=== PATIENT | female | born 1980 | race African-American/Black ===

== ENCOUNTER 2018-10-03 09:48 | Emergency (ER) | payer OTHER ==
[~2018-10-03] VITALS: Ht 167.6 cm; Wt 108.9 kg
[2018-10-03 11:06] VITALS: BP 133/95
[2018-10-03] MEDS ORDERED: OFLO5DRO OP (12:01)
--- NOTE | 2018-10-03 12:02 | PHYS DOC ---
Past Medical History Past Medical History: No Pertinent History (MESFIN MILES APRN) Past Surgical History: No Surgical History (MESFIN MILES APRN) Alcohol Use: Occasionally Drug Use: None (MESFIN MILES APRN) Adult General Chief Complaint Chief Complaint: EYE PROBLEMS HPI HPI Patient is a 38 year old female who presents with left eye erythema and watering profusely. The patient states that she does have some photophobia with sunlight exposure. She states that she felt like something got into her eye on Wednesday. She denies matting and states that her drainage is clear with and watery. She denies changes in her vision. See the nurse's visual acuities. She does wear reading glasses but denies contact use. (MESFIN MILES APRN) Review of Systems Review of Systems Constitutional: Denies fever or chills [] Eyes: See history of present illness HENT: Denies nasal congestion or sore throat [] Respiratory: Denies cough or shortness of breath [] Cardiovascular: No additional information not addressed in HPI [] Neurologic: Denies headache, focal weakness or sensory changes [] Endocrine: Denies polyuria or polydipsia [] All other systems were reviewed and found to be within normal limits, except as documented in this note. (MESFIN MILES APRN) Current Medications Current Medications Current Medications Medications (Trade) Dose Ordered Sig/Bianca Start Time Stop Time Status Last Admin Dose Admin Fluorescein Sodium (Ful-Beverley) 1 strip 1X ONCE 10/03/18 12:15 10/03/18 12:16 DC 10/03/18 12:19 1 STRIP Tetracaine HCl (Tetracaine) 1 drop 1X ONCE 10/03/18 12:15 10/03/18 12:16 DC 10/03/18 12:19 1 DROP (LIUDMILA EVANS MD) Allergies Allergies Allergies Coded Allergies Type Severity Reaction Last Updated Verified No Known Drug Allergies 09/07/14 No (LIUDMILA EVANS MD) Physical Exam Physical Exam Constitutional: Well developed, well nourished, no acute distress, non-toxic appearance. [] HENT: Normocephalic, atraumatic, bilateral external ears normal, oropharynx moist, no oral exudates, nose normal. [] Eyes: PERRLA, EOMI, conjunctiva erythematous to left with watery discharge. [] Neck: Normal range of motion, no tenderness, supple, no stridor. [] Cardiovascular:Heart rate regular rhythm, no murmur [] Lungs & Thorax: Bilateral breath sounds clear to auscultation [] Neurologic: Alert and oriented X 3, normal motor function, normal sensory function, no focal deficits noted. [] Psychologic: Affect normal, judgement normal, mood normal. [] (MESFIN MILES APRN) Current Patient Data Vital Signs Vital Signs Date Time Temp Pulse Resp B/P (MAP) Pulse Ox O2 Delivery O2 Flow Rate FiO2 10/03/18 11:06 98.4 91 16 133/95 (108) 100 Room Air 98.4 (LIUDMILA EVANS MD) EKG EKG [] (MESFIN MILES APRN) Radiology/Procedures Radiology/Procedures []Ophthalmologic Assessment: Patient's ocular symptoms have stabilized while they have been evaluated in the department and are appropriate for outpatient work up. No evidence of ruptured globe, retinal detachment, acute angle closure glaucoma, or deep space infection. There was uptake of full glow that 7 o'clock a corneal abrasion noted (MESFIN MILES APRN) Course & Med Decision Making Course & Med Decision Making Pertinent Labs and Imaging studies reviewed. (See chart for details) [] (MESFIN MILES APRN) Course & Med Decision Making Staff Physician Addendum: I was working in the ER during the course of this patient's visit. I was available for consultation as needed, but I was not directly involved in the care of this patient. (LIUDMILA EVANS MD) Dragon Disclaimer Dragon Disclaimer This electronic medical record was generated, in whole or in part, using a voice recognition dictation system. (MESFIN MILES APRN) Departure Departure Impression: Primary Impression: Corneal abrasion Disposition: 01 HOME, SELF-CARE Condition: STABLE Referrals: EFRAIN FOREMAN MD (PCP) Patient Instructions: Eye - Corneal Abrasion Additional Instructions: As the eyedrops as directed. Follow-up with your civil engineering project designer in 2 days if not improving or sooner if worsening. Scripts Ofloxacin (OCUFLOX) 5 Ml Drops 5 ML OP QID for corneal abrasion for 7 Days, DROP Prov: MESFIN MILES APRN 10/03/18 MESFIN MILES APRN Oct 03, 2018 12:02 LIUDMILA EVANS MD October 05, 2018 00:08
[2018-10-03] MEDS ORDERED: TETRACAINE 0.5% OPHTH SOLUTION 4ML BOTTLE. OS ONE (12:15)
[2018-10-03] MEDS ORDERED: FLUORESCEIN OPHTH TEST STRIP. OS ONE (12:15)
== END 2018-10-03 13:11 | disposition home or self-care (01) ==
LOC: ER 09:48
DX: S05.02XA Injury of conjunctiva and corneal abrasion without foreign body, left eye, initial encounter (principal); X58.XXXA Exposure to other specified factors, initial encounter; Y93.89 Activity, other specified; Y92.89 Other specified places as the place of occurrence of the external cause; Y99.8 Other external cause status
CPT/HCPCS: 99283

== ENCOUNTER → 2019-08-08 | Outpatient (CLI) | payer MEDICAID ==
[~2019-08-08] MED LIST: OFLO5DRO OP
--- NOTE | 2019-08-08 17:42 | KCIC ---
Three-view cervical spine series Clinical indications: Chronic tension-type headache. Neck pain. FINDINGS: No acute fracture or discitis or lytic process or anterolisthesis or prevertebral soft tissue swelling is evident. There is mild degenerative endplate spurring without disc space narrowing at C4-5 and C5-6 and C6-7. IMPRESSION: Mild degenerative cervical spondylosis. Electronically signed by: Travis Blake MD (08/08/2019 5:40 PM) [facility] [place]
--- NOTE | 2019-08-08 17:44 | KCIC ---
Three-view lumbar spine series Clinical indications: Chronic low back pain extending into the lower extremities for years. FINDINGS: Mild rotatory dextroscoliosis is seen. The transverse processes are intact. No compression fracture or discitis or lytic process or anterolisthesis is seen. There is mild degenerative facet arthropathy at L3-4 and L4-5 and L5-S1. No significant degenerative disc space narrowing or endplate spurring is seen throughout the lumbar spine. IMPRESSION: Mild dextroscoliosis. No acute compression fracture. Electronically signed by: Travis Blake MD (08/08/2019 5:41 PM) [facility] [place]
== END | disposition home or self-care (01) ==
LOC: KCIC 13:21
PROVIDERS: ATTEND Family Medicine
DX: M47.817 Spondylosis without myelopathy or radiculopathy, lumbosacral region (principal); M47.812 Spondylosis without myelopathy or radiculopathy, cervical region
CPT/HCPCS: 72040; 72100

== ENCOUNTER → 2019-10-31 | Outpatient (CLI) | payer MEDICAID ==
--- NOTE | 2019-10-31 12:01 | RAD ---
MRI Lumbar Spine without contrast History: Radiculopathy, low back pain, right hip pain Technique: Multiplanar, multi sequential noncontrast MR imaging was performed of the lumbar spine. Comparison: None Findings: Most inferior fully formed intervertebral disc space is considered L5-S1. Lumbar vertebral body stature and AP alignment is maintained. There is a likely hemangioma of the L1 vertebral bodies slightly hyperintense on all sequences. There is degenerative endplate change of the superior endplate of T11. There is trace edema of the anterior superior corner of T12 likely reactive/degenerative in etiology. Conus terminates at L1. There is mild lumbar dextroscoliosis. L1-2, L2-3: These levels were not included on the axial images. Neural foramina and spinal canal are adequate. L3-L4: There is mild facet degenerative change and buckling of the ligamentum flavum. Neural foramina and spinal canal are adequate. L4-L5: Neural foramina and spinal canal are adequate. There is mild to moderate right facet degenerative change. There is mild buckling of the ligamentum flavum. L5-S1: Spinal canal and neural foramina are adequate. There is some bony narrowing about the extraforaminal right L5 nerve root due to sacralization. Impression: 1. There is no significant lumbar spinal stenosis or neural foramina compromise. Most inferior fully formed intervertebral disc space is considered L5-S1. There is facet degenerative change greatest on the right at L4-5. There is mild lumbar dextroscoliosis. There is some bony narrowing about the extraforaminal right L5 nerve root at what is considered L5-S1 due to sacralization. Electronically signed by: Eric Fulton MD (10/31/2019 11:58 AM) [place] [id number]
== END | disposition home or self-care (01) ==
LOC: MRI 10:05
PROVIDERS: ATTEND Family Medicine
DX: M47.27 Other spondylosis with radiculopathy, lumbosacral region (principal); M43.27 Fusion of spine, lumbosacral region; M48.07 Spinal stenosis, lumbosacral region
CPT/HCPCS: 72148

== ENCOUNTER → 2020-08-27 | Outpatient (CLI) | payer MEDICAID ==
--- NOTE | 2020-08-29 11:52 | RAD ---
DATE: 08/27/2020 3:30 PM EXAM: MAMMO GABBY SCREENING BILATERAL HISTORY: Screening COMPARISON: None. This is a baseline. Bilateral CC and MLO views of the breasts were performed. Bilateral breast tomosynthesis was performed in CC and MLO projections. This study was interpreted with the benefit of Computerized Aided Detection (CAD). FINDINGS: Breast Density: SCATTERED The breast parenchyma shows scattered fibroglandular densities. Breast parenchyma level B No suspicious masses, microcalcifications or architectural distortion is present to suggest malignancy in either breast. The visualized axillae are unremarkable. IMPRESSION: No mammographic evidence of malignancy. BI-RADS CATEGORY: 1 NEGATIVE RECOMMENDED FOLLOW-UP: 12M 12 MONTH FOLLOW-UP Annual screening mammography is recommended, unless clinically indicated sooner based on symptoms or change in physical exam. PQRS compliance statement: Patient information was entered into a reminder system with a target due date for the next mammogram. Mammography is a sensitive method for finding small breast cancers, but it does not detect them all and is not a substitute for careful clinical examination. A negative mammogram does not negate a clinically suspicious finding and should not result in delay in biopsying a clinically suspicious abnormality. "Our facility is accredited by the [employer] Mammography Program."
== END ==
LOC: MAMMO 15:15
PROVIDERS: ATTEND Family Medicine
DX: Z12.31 Encounter for screening mammogram for malignant neoplasm of breast (principal)
CPT/HCPCS: 77063; 77067

== ENCOUNTER → 2020-12-23 | Outpatient (CLI) | payer MEDICAID ==
--- NOTE | 2020-12-23 11:13 | RAD ---
EXAM: ULTRASOUND PELVIS INDICATION: menorrhagia : . COMPARISON: None available. TECHNIQUE: Transabdominal sonography was performed. FINDINGS: The uterus measures 14.5 x 7.5 x 10.5 cm. The endometrium measures 1.5 cm in thickness. Right ovary m easures 2.1 x 2.7 x 2.5 cm. The left ovary measures 3.4 x 1.9 x 1.6 cm Identified in the right and left ovaries. There are multiple echogenicities identified in the uterus with the largest measuring 5.7 cm likely f ibroids. IMPRESSION: 1. Thickened appearing endometrium measures 1.5 cm could be phase of menstruation or endometrial hype rplasia 2. Multiple uterine fibroids with the largest measuring 5.7 cm. Electronically signed by: Jorge Luis García MD (12/23/2020 11:11 AM) [id number]
== END ==
LOC: US 11:30
PROVIDERS: ATTEND Obstetrics & Gynecology
DX: D25.9 Leiomyoma of uterus, unspecified (principal); N92.0 Excessive and frequent menstruation with regular cycle
CPT/HCPCS: 76856

== ENCOUNTER → 2021-01-03 | Outpatient (CLI) | payer MEDICAID ==
[~2021-01-03] MED LIST changes: +DOCU-109 PO; +FLUC150T PO; +IBUP-1007 PO; +IBUP-1060 PO; +LORA10TA68 PO; +OXYC1TAB15 PO; +PANT40TA77 PO
== END ==
LOC: LAB 09:58
PROVIDERS: ATTEND Obstetrics & Gynecology
DX: Z01.812 Encounter for preprocedural laboratory examination (principal); N92.0 Excessive and frequent menstruation with regular cycle; Z20.822 Contact with and (suspected) exposure to COVID-19
CPT/HCPCS: U0003; U0005

== ENCOUNTER 2021-01-06 06:42 | Day surgery (SDC) | payer MEDICAID ==
[~2021-01-06] VITALS: Ht 167.6 cm; Wt 102.2 kg
[~2021-01-06 06:42] MED LIST changes: -DOCU-109 PO; -FLUC150T PO; +HYDROmorphone 2 MG/ML VIAL IVP PRN; -IBUP-1060 PO; +IV RINGERS,LACTATED 1000ML 1,000 ML IV SCH; +MORPHINE SULFATE 2 MG/ML INJ. IVP PRN; -OXYC1TAB15 PO; +PROCHLORPERAZINE 10 MG/2 ML VIAL. IVP PRN; +fentaNYL PF VIAL 100 MCG/2 ML VIAL IVP PRN
[2021-01-06 07:30] VITALS: BP 133/83
[2021-01-06 07:46] LABS: BASO # 0.1 x10^3/uL (0.0-0.2); BASO % 1 % (0-3); EOS # 0.1 x10^3/uL (0.0-0.7); EOS % 1 % (0-3); HEMATOCRIT 37.4 % (36.0-47.0); HEMOGLOBIN 12.5 g/dL (12.0-15.5); LYMPH # 1.7 x10^3/uL (1.0-4.8); LYMPH % 24 % (24-48); MEAN CORPUSCULAR HEMOGLOBIN 31 pg (25-35); MEAN CORPUSCULAR HGB CONC 34 g/dL (31-37); MEAN CORPUSCULAR VOLUME 93 fL (79-100); MONO # 0.3 x10^3/uL (0.0-1.1); MONO % 4 % (0-9); NEUT % 70 % (31-73); PLATELET COUNT 231 x10^3/uL (140-400); RED BLOOD COUNT 4.03 x10^6/uL (3.50-5.40); RED CELL DISTRIBUTION WIDTH 13.7 % (11.5-14.5); WHITE BLOOD COUNT 7.2 x10^3/uL (4.0-11.0)
[2021-01-06] MEDS ORDERED: LIDOCAINE 1% PF 5 ML VIAL. ONE (07:57)
[2021-01-06] MEDS ORDERED: PROPOFOL 10 MG/ML (20ML) VIAL. IV ONE (07:57)
[2021-01-06] MEDS ORDERED: fentaNYL PF VIAL 250 MCG/5 ML VIAL ONE (07:58)
[2021-01-06] MEDS ORDERED: MIDAZOLAM HCL/PF 2 MG/2 ML VIAL. ONE (07:59)
[2021-01-06] MEDS ORDERED: DEXAMETHASONE SOD PHOS 4 MG/ML VIAL ONE (08:02)
[2021-01-06] MEDS ORDERED: ONDANSETRON PF 4 MG/2 ML VIAL. ONE (08:02)
--- NOTE | 2021-01-06 08:10 | PDOC1 ---
[employer] H&P Date of Admission: Date of Admission: History of Present Illness: 40y presents for scheduled surgery. The pt was originally seen 08/20/20 for eval and tx of menorrhagia. Since her last child she has had heavy bleeding. Discussed ablation initially at that visit. At the time the pt had a last pap that was (07/04/20) returned cytology neg/HPV pos. the pt was to schedule a colpo. She was hospitalized for a pneumonia so she did not return for the colpo until 12/10/20. After the colpo an u/s was ordered. The u/s on 12/23/20 revealed a uterus measuring 14.5 x 7.5 x 10.5 cm. Explained that with those dimensions ablation may not be effective. Explained that if she did not have improvement after ablation we could always performed a hysterectomy after. 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 SH: no tob, no EtOH FH: noncontributory Medications: Meds: Current Medications Medications (Trade) Dose Ordered Sig/Bianca Route PRN Reason Start Time Stop Time Status Last Admin Dose Admin Ringer's Solution 1,000 ml @ 30 mls/hr Q24H IV 01/06/21 06:00 01/06/21 17:59 01/06/21 07:38 Allergies: Coded Allergies: Penicillins (Verified Allergy, Intermediate, Unknown, 01/06/21) latex (Verified Allergy, Intermediate, Rash, 01/06/21) AND DEVELOPS BUMPS ON SKIN Physical Exam: Vital Signs: Vital Signs Date Time Temp Pulse Resp B/P (MAP) Pulse Ox O2 Delivery O2 Flow Rate FiO2 01/06/21 07:32 98.0 90 18 133/83 98 Room Air 98.0 PE: GENERAL: No apparent distress. Alert and oriented. HEENT: Head normocephalic, atraumatic. NECK: Supple LUNGS: Clear to auscultation. HEART: RRR, S1, S2 present, pulses intact ABDOMEN: Soft, positive bowel sounds. EXTREMITIES: No cyanosis or edema. NEUROLOGIC: Normal speech, normal tone PSYCHIATRIC: Normal affect, normal mood. SKIN: No ulceration. Labs: Laboratory Tests Test 01/06/21 06:30 01/06/21 07:30 POC Urine HCG, Qualitative Hcg negative (Negative) White Blood Count 7.2 x10^3/uL (4.0-11.0) Red Blood Count 4.03 x10^6/uL (3.50-5.40) Hemoglobin 12.5 g/dL (12.0-15.5) Hematocrit 37.4 % (36.0-47.0) Mean Corpuscular Volume 93 fL (79-100) Mean Corpuscular Hemoglobin 31 pg (25-35) Mean Corpuscular Hemoglobin Concent 34 g/dL (31-37) Red Cell Distribution Width 13.7 % (11.5-14.5) Platelet Count 231 x10^3/uL (140-400) Neutrophils (%) (Auto) 70 % (31-73) Lymphocytes (%) (Auto) 24 % (24-48) Monocytes (%) (Auto) 4 % (0-9) Eosinophils (%) (Auto) 1 % (0-3) Basophils (%) (Auto) 1 % (0-3) Neutrophils # (Auto) 5.0 x10^3/uL (1.8-7.7) Lymphocytes # (Auto) 1.7 x10^3/uL (1.0-4.8) Monocytes # (Auto) 0.3 x10^3/uL (0.0-1.1) Eosinophils # (Auto) 0.1 x10^3/uL (0.0-0.7) Basophils # (Auto) 0.1 x10^3/uL (0.0-0.2) Laboratory Tests 01/06/21 07:30 Laboratory Tests 01/06/21 07:30 Assessment & Plan: A/P 40y with menorrhagia 1.) Menorrhagia - heavy bleeding with large clots. Failed medical management in the past. Scheduled for Ablation. 2.) Cytology neg/HPV pos pap - colpo bx KIMMY I and ECC neg, co-testing in 12 months 3.) Breast reduction - discussed plastic surgeon at [place] 4.) Recent hospital admission - pneumonia 5.) BMI 38 PEDRO CEBALLOS MD Jan 06, 2021 08:10
[2021-01-06] MEDS ORDERED: KETOROLAC 30 MG/ML VIAL. ONE (08:54)
[2021-01-06] MEDS ORDERED: IBUP-1060 PO (09:15)
[2021-01-06] MEDS ORDERED: OXYC1TAB15 PO (09:15)
[2021-01-06] MEDS ORDERED: DOCU-109 PO (09:15)
[2021-01-06] MEDS ORDERED: MORPHINE SULFATE 2 MG/ML INJ. ONE (09:29)
[2021-01-06 09:36] VITALS: BP 105/57
[2021-01-06] MEDS ORDERED: FLUC150T PO (09:38)
[2021-01-06] MEDS ORDERED: oxyCODONE/APAP 5/325 1 TAB TABLET PO ONE (09:45)
--- NOTE | 2021-01-06 10:18 | PDOC4 ---
OPERATIVE NOTE: PreOp Dx: 1.) Menorrhagia, 2.) Cytology neg/HPV pos pap - colpo bx KIMMY I and ECC neg, 3.) Recent pneumonia PostOp Dx: same Procedure: H/S, D&C, Novasure ablation Surgeon: Michael Ceballos Anesthesia: LMA EBL: 10 cc Fluids: 500 cc Complication: none Findings: benign appearing endometrium, cervix measuring 3 cm, endometrial cavity measuring 11 cm. Measurements placed into tower (6.5 length, 3.7 width). Good ablation of endometrial cavity after completion of procedure. Path: endometrial curetting PEDRO CEBALLOS MD Jan 06, 2021 10:18
--- NOTE | 2021-01-06 10:34 | OP ---
DATE OF SURGERY: 01/06/2021 PREOPERATIVE DIAGNOSES: 1. Menorrhagia. 2. Cytology negative, but HPV positive Pap with colposcopic biopsies of KIMMY 1 and a negative ECC. 3. Recent pneumonia. POSTOPERATIVE DIAGNOSES: 1. Menorrhagia. 2. Cytology negative, but HPV positive Pap with colposcopic biopsies of KIMMY 1 and a negative ECC. 3. Recent pneumonia. PROCEDURE: Hysteroscopy, dilatation and curettage and NovaSure ablation. SURGEON: Luther Bergeron MD ANESTHESIA: LMA. ESTIMATED BLOOD LOSS: 10 mL. FLUIDS: 500 mL. COMPLICATIONS: None. FINDINGS: Benign appearing endometrium with a cervix measuring 3 cm and 11 cm to fundus.Measurements placed in the [place] were 6.5 for the length and 3.7 for the width. After the minute and 31 seconds of ablation, the endometrial cavity was noted to have good ablation. PATHOLOGY: Endometrial curetting. DESCRIPTION OF PROCEDURE: The patient was taken to the operating room where LMA was placed without difficulty. The patient was prepped and draped in normal sterile fashion. A posterior speculum was placed in the patient's vagina and a right angle retractor was used to visualize the cervix. Anterior lip of the cervix was then grasped with a single tooth tenaculum. At that point, the cervix was measured and found to be approximately 3 cm. At that point, the cervix was serially dilated to allow for the hysteroscope to be placed. Once it was sufficiently dilated, the uterus was sounded to 11 cm. At that point, the hysteroscope was placed. Visualization of the endometrium revealed what appeared to be normal endometrium which was benign. At that point, curetting was performed gently. This specimen was sent to pathology. At that time, the hysteroscope was then removed. The NovaSure device was then placed into the endometrial cavity and opened, the width was found to be 3.7 cm. Both of the measurements of the length of 6.5 and the width of 3.7 were entered into the NovaSure [place]. At that point, the NovaSure was activated. After a minute and 31 seconds, the ablation had been complete. At that point, the NovaSure device was then removed. The hysteroscope was then replaced, revealing good ablation in all aspects of the endometrial cavity. At that point, the hysteroscope was removed as well as the tenaculum. Minimal bleeding was noted at the tenaculum site. Good hemostasis was noted. The patient was then brought to the recovery room in stable condition. ESTUARDO DR: Ann TID: [id number] MTDD
--- NOTE | 2021-01-07 18:07 | PATHOLOGY ---
[facility] Accession Number: [id number] . 01 Material submitted: . endometrium - ENDOMETRIAL CURETTINGS . 01 Clinical history: . MENORRHAGIA D/C WITH NOVASURE ABLATION . 02 Diagnosis: Endometrial curettings: - Proliferative endometrium. - Few segments of endocervical mucosa showing focal chronic inflammation and squamous metaplasia. (JPM:birdie; 01/07/2021) MBR 01/07/2021 1616 Local . 02 Comment: There is no evidence of endometrial hyperplasia or malignancy. (JPM:birdie; 01/07/2021) . 02 Electronically signed: . Adama Novak MD, Pathologist NPI- [id number] . 01 Gross description: . The specimen is received in formalin, labeled "Blair Alfaro, endometrial curettings" and consists of a multiple hemorrhagic soft irregular tissues aggregating 6.0 x 4.7 x 0.4 cm. The specimen is filtered and submitted in toto in A1-A7. ([facility]; 01/06/2021) DKA/DKA 01/06/2021 1640 Local . 02 Pathologist provided ICD-10: N72, N87.9 . 02 CPT . 648359 Specimen Comment: A courtesy copy of this report has been sent to [phone], [phone] Specimen Comment: [id number] Specimen Comment: Report sent to / DR FOREMAN Performed at: 01 [facility] [address], [place] [id number] MD Preet Morgan MD Phone: [phone] Performed at: 02 [facility] [address], [place] [id number] MD Adama Novak MD Phone: [phone]
== END 2021-01-06 10:09 | disposition home or self-care (01) ==
LOC: SURG 06:42
PROVIDERS: ATTEND Obstetrics & Gynecology
DX: N92.0 Excessive and frequent menstruation with regular cycle (principal); R87.810 Cervical high risk human papillomavirus (HPV) DNA test positive; N72 Inflammatory disease of cervix uteri; N87.9 Dysplasia of cervix uteri, unspecified; M19.90 Unspecified osteoarthritis, unspecified site; Z87.891 Personal history of nicotine dependence; Z79.899 Other long term (current) drug therapy; Z98.890 Other specified postprocedural states; Z88.0 Allergy status to penicillin; Z91.040 Latex allergy status; Z72.89 Other problems related to lifestyle; Z87.01 Personal history of pneumonia (recurrent)
CPT/HCPCS: 36415; 58563; 81025; 85025; 86850; 86900; 86901; 88305; A4930; J1100; J1885; J2250; J2270; J2405; J2704; J3010; J3490; A4322